=== PATIENT | male | born 1990 | race Caucasian/White ===

== ENCOUNTER 2016-06-07 20:36 | Emergency (ER) | payer MEDICAID, OTHER ==
[2016-06-07 20:53] VITALS: BP 145/93; PULSE 78; RESP 14; TEMP 97.7; O2SAT 97
--- NOTE | 2016-06-07 21:10 | UCPHY ---
H & P Time Seen by Provider: 06/07/16 21:10 Patient Type: New HPI/ROS: CHIEF COMPLAINT: Facial redness and swelling. HISTORY OF PRESENT ILLNESS: The patient is a 25-year-old male who presents with lower facial swelling and erythema secondary to popping a pimple on his face that has been present for many years, though never had it looked at. He stuck the pimple with a pin, that he is sterilized with hydrogen peroxide and was able to express a small amount of pus, and in fact the area had swelled up since that time. The area then swelled up to twice the size. He denies difficulty swallowing, throat swelling, fever, or other complaints. Tetanus is up to date. There is no pain going into the neck. He is able to phonate well. REVIEW OF SYSTEMS: Constitutional: No fever, no chills. ENT: No sore throat. Skin: No rashes, except the lesion noted above Smoking Status: Never smoked Physical Exam: General Appearance: Alert, no distress. Afebrile. Normal phonation. No respiratory distress Eyes: Pupils equal and round no pallor or injection. No icterus. EOMI Face: On the area of the left jaw, just below the commissure of the mouth there is a large area with fluctuance that is approximately 1 cm round firm but fluctuant. There is also a small area of brownish discoloration from where he put the pain in so as to drain ENT, Mouth: Mucous membranes moist. Pharynx without erythema or exudate. Neck: No adenopathy. Supple. Trachea in ML. Neck is nontender, no midline tenderness. Constitutional: Initial Vital Signs Temperature (C) 36.5 C 06/07/16 20:49 Heart Rate 78 06/07/16 20:49 Respiratory Rate 14 06/07/16 20:49 Blood Pressure 145/93 H 06/07/16 20:49 O2 Sat (%) 97 06/07/16 20:49 O2 Delivery Mode Room Air Allergies/Adverse Reactions: No Known Allergies Allergy (Verified 06/07/16 20:49) Home Medications: Medication Instructions Recorded Sulfamethox/Tmp 800/160 mg 1 tab PO BID #20 tab 06/07/16 [Bactrim Ds] Medical Decision Making Procedures: Procedure: Incision and Drainage. The patient's abscess was located on the lower face. Risks, benefits, alternatives discussed with the patient and consent obtained. The area was prepped and draped in sterile fashion. The patient received local anesthesia with 1% lidocaine, without epinephrine. The abscess was incised with a #11 blade and purulent drainage was expressed, as well as gelatinous material total of approximately 1 cc. The patient tolerated the procedure well. The procedure was performed by myself. Culture was taken ED Course/Re-evaluation: 25-year-old male presents with an area of swelling and erythema on his lower face after he popped a zit there. He was able to express a large amount of pus but the area then swelled up to twice the original size. On exam he has no throat swelling, no red streaking, and no trismus. I do feel a small amount of pus left in the area. Plan for I&D (see procedure note for details). Given the presentation of face we will cover for MRSA, with Bactrim The patient tolerated the procedure well. He will be discharged with a prescription for Bactrim. He understands to use warm compresses and to follow up with a PCP. I offered pain medication and he will go home with Thornton to help him sleep. He reports no history of drug abuse. Differential Diagnosis: Diagnostic considerations include, but are not limited to, the following: Abscess, cellulitis, infected sebaceous cyst - Data Points Medications Given: Discontinued Medications Hydrocodone Bitart/Acetaminophen (Thornton 5/325mg Prepack#6) 1 btl TAKEHOME EDNOW ONE Stop: 06/07/16 22:01 Last Admin: 06/07/16 22:58 Dose: 1 btl Trimethoprim/Sulfamethoxazole (Bactrim Ds Prepack#2) 1 btl TAKEHOME EDNOW ONE Stop: 06/07/16 22:01 Last Admin: 06/07/16 22:59 Dose: 1 btl Departure - Departure Disposition: Home, Routine, Self-Care Clinical Impression: Abscess, Sebaceous cyst Condition: Good Instructions: Abscess (ED) Additional Instructions: Take Bactrim as prescribed. Use a warm compress on the affected area 2-3 times daily for the next few days. Follow up with your primary care provider next week for reevaluation. If you need a primary care provider you have been given the telephone number of the on- call provider. Return for fever, increasing pain, increasing redness, red streaking or other serious worsening of condition. Referrals: Jay Newby MD [Medical Doctor] - As per Instructions Prescriptions: Sulfamethox/Tmp 800/160 mg [Bactrim Ds] 1 tab PO BID #20 tab - PQRS PQRS Measurement: N/A. Report Scribed for: Jordy Forrest Report Scribed by: Sohail Ross Date of Report: 06/07/16 Time of Report: 21:19
[2016-06-07] MEDS ORDERED: SULFAMET/TMP DS PREPACK#2 BTL TAKEHOME ONE (22:00)
[2016-06-07] MEDS ORDERED: HYDROCOD/APAP 5/325 PREPACK#6 BTL TAKEHOME ONE (22:00)
== END 2016-06-07 22:16 | disposition home or self-care (01) ==
LOC: CED 20:36
PROC: 0H91XZZ Drainage of Face Skin, External Approach (ICD-10-PCS; principal; 2016-06-07)
DX: L72.3 Sebaceous cyst (principal)
CPT/HCPCS: G0463-PO